=== PATIENT | male | born 1990 | race Caucasian/White ===

== ENCOUNTER 2022-12-28 15:18 | Inpatient (IN) | payer OTHER ==
[2022-12-28 15:48] VITALS: BMI 33.3
[2022-12-28] MEDS ORDERED: chlordiazePOXIDE HCL 25 MG CAPSULE PO PRN (16:30)
[2022-12-28] MEDS ORDERED: ONDANSETRON *ODT* 4 MG TABLET SL PRN (16:30)
[2022-12-28] MEDS ORDERED: P-EPHED 60MG/TRIPROLIDI 2.5MG TABLET PO PRN (16:30)
[2022-12-28] MEDS ORDERED: guaiFENesin 600 MG TABLET.ER (FP) PO PRN (16:30)
[2022-12-28] MEDS ORDERED: IBUPROFEN 600 MG TABLET (FP) PO PRN (16:30)
[2022-12-28] MEDS ORDERED: BISMUTH SUBSALICYLATE 524 MG/30 ML PO PRN (16:30)
[2022-12-28] MEDS ORDERED: POLYETHYLENE GLYCOL (HEALTHYLAX) 3350 17 GM PACKET PO PRN (16:30)
[2022-12-28] MEDS ORDERED: MAG HYDROX/AL HYDROX/SIMETH 30 ML UNIT-DOSE CUP PO PRN (16:30)
[2022-12-28] MEDS ORDERED: IBUPROFEN 400 MG TABLET (FP) PO PRN (16:30)
[2022-12-28] MEDS ORDERED: ACETAMINOPHEN 325 MG TABLET (FP) PO PRN (16:30)
[2022-12-28] MEDS ORDERED: BENZOCAINE/MENTHOL (CHLORASEPTIC ) LOZENGE MM PRN (16:30)
[2022-12-28] MEDS ORDERED: DICYCLOMINE HCL 10 MG CAPSULE PO PRN (16:30)
[2022-12-28] MEDS ORDERED: MAGNESIUM HYDROX 2400MG/30ML ORAL SUSPENSION 30 ML CUP PO PRN (16:30)
[2022-12-28] MEDS ORDERED: BENZONATATE 200 MG CAPSULE PO PRN (16:30)
[2022-12-28] MEDS ORDERED: LOPERAMIDE HCL 2 MG CAPSULE PO PRN (16:30)
[2022-12-28] MEDS ORDERED: METOPROLOL TARTRATE 25 MG TABLET (FP) ONE (16:45)
[2022-12-28] MEDS ORDERED: chlordiazePOXIDE HCL 25 MG CAPSULE ONE (16:45)
[2022-12-28] MEDS ORDERED: METOPROLOL TARTRATE 25 MG TABLET (FP) PO ONE (16:45)
[2022-12-28] MEDS: chlordiazePOXIDE HCL 25 MG CAPSULE PO SCH ×2 (17:23→22:01)
[2022-12-28] MEDS: THIAMINE HCL 100 MG TABLET (FP) PO SCH (22:01)
[2022-12-28] MEDS: MELATONIN 5 MG TABLETS PO SCH (22:02)
[2022-12-29] MEDS: chlordiazePOXIDE HCL 25 MG CAPSULE PO SCH ×4 (05:18→22:16)
[2022-12-29] MEDS: hydrOXYzine PAMOATE 25 MG CAPSULE (FP) PO PRN ×2 (05:19→16:49)
[2022-12-29] MEDS ORDERED: cloNIDine HCL 0.1 MG TABLET PO ONE (09:13)
[2022-12-29] MEDS: PRENATAL VITAMINS W/ FOLIC ACID TABLET (FP) PO SCH (10:14)
[2022-12-29 11:34] LABS: HEMATOCRIT 46.2 % (35.4-49); HEMOGLOBIN 16.4 GM/dL (11.7-16.9); MCH 34.1 pg (25.7-33.7); MCHC 35.6 g/dl (32.0-35.9); MEAN CELL VOLUME 95.9 fl (80-96); MEAN PLT VOLUME 10.4 fl (7.5-11.1); PLATELET COUNT 139 10^3/uL (134-434); RBC 4.82 M/mm3 (4.00-5.60); RDW 14.1 % (11.9-15.9); WHITE BLOOD COUNT 6.1 K/mm3 (4.0-10.0)
[2022-12-29 11:50] LABS: ALBUMIN 4.2 g/dl (3.4-5.0); BLOOD UREA NITROGEN 7.7 mg/dL (7-18)
[2022-12-29 11:51] LABS: CALCIUM 9.8 mg/dL (8.5-10.1)
[2022-12-29 11:52] LABS: BILIRUBIN,TOTAL 0.8 mg/dL (0.2-1)
[2022-12-29] MEDS: cloNIDine HCL 0.1 MG TABLET PO PRN ×2 (17:05→21:30)
[2022-12-29] MEDS: MELATONIN 5 MG TABLETS PO SCH (22:17)
[2022-12-29] MEDS: THIAMINE HCL 100 MG TABLET (FP) PO SCH (22:17)
[2022-12-30] MEDS: chlordiazePOXIDE HCL 25 MG CAPSULE PO SCH ×4 (05:13→22:27)
[2022-12-30] MEDS: cloNIDine HCL 0.1 MG TABLET PO PRN ×3 (05:15→20:27)
[2022-12-30] MEDS: PRENATAL VITAMINS W/ FOLIC ACID TABLET (FP) PO SCH (10:28)
[2022-12-30] MEDS: hydrOXYzine PAMOATE 25 MG CAPSULE (FP) PO PRN (10:29)
[2022-12-30] MEDS: HYDROCHLOROTHIAZIDE 25 MG TABLET (FP) PO SCH (10:30)
[2022-12-30] MEDS: amLODIPine BESYLATE 10 MG TABLET (FP) PO SCH (10:30)
[2022-12-30] MEDS: THIAMINE HCL 100 MG TABLET (FP) PO SCH (22:28)
[2022-12-30] MEDS: MELATONIN 5 MG TABLETS PO SCH (22:28)
[2022-12-31] MEDS ORDERED: chlordiazePOXIDE HCL 10 MG CAPSULE PO PRN
[2022-12-31] MEDS: chlordiazePOXIDE HCL 10 MG CAPSULE PO SCH ×4 (05:49→22:09)
[2022-12-31] MEDS: cloNIDine HCL 0.1 MG TABLET PO PRN ×3 (05:52→22:11)
[2022-12-31] MEDS: PRENATAL VITAMINS W/ FOLIC ACID TABLET (FP) PO SCH (10:29)
[2022-12-31] MEDS: amLODIPine BESYLATE 10 MG TABLET (FP) PO SCH (10:29)
[2022-12-31] MEDS: HYDROCHLOROTHIAZIDE 25 MG TABLET (FP) PO SCH (10:29)
[2022-12-31] MEDS: hydrOXYzine PAMOATE 25 MG CAPSULE (FP) PO PRN (10:29)
[2022-12-31 10:40] LABS: SGPT/ALT 146 U/L (13-61)
[2022-12-31 11:05] LABS: SGOT/AST 120 U/L (15-37)
[2022-12-31] MEDS: THIAMINE HCL 100 MG TABLET (FP) PO SCH (22:09)
[2022-12-31] MEDS: MELATONIN 5 MG TABLETS PO SCH (22:09)
[2023-01-01] MEDS ORDERED: chlordiazePOXIDE HCL 10 MG CAPSULE PO SCH (05:00)
[2023-01-01] MEDS: HYDROCHLOROTHIAZIDE 25 MG TABLET (FP) PO SCH (10:33)
[2023-01-01] MEDS: amLODIPine BESYLATE 10 MG TABLET (FP) PO SCH (10:33)
[2023-01-01] MEDS: hydrOXYzine PAMOATE 25 MG CAPSULE (FP) PO PRN ×2 (10:33→17:35)
[2023-01-01] MEDS: PRENATAL VITAMINS W/ FOLIC ACID TABLET (FP) PO SCH (10:33)
[2023-01-01] MEDS ORDERED: LORazepam 0.5 MG TABLET PO ONE (18:00)
[2023-01-01] MEDS ORDERED: cloNIDine HCL 0.1 MG TABLET PO ONE (19:19)
[2023-01-01] MEDS: THIAMINE HCL 100 MG TABLET (FP) PO SCH (22:18)
[2023-01-01] MEDS: MELATONIN 5 MG TABLETS PO SCH (22:18)
[2023-01-02] MEDS ORDERED: chlordiazePOXIDE HCL 10 MG CAPSULE PO ONE (05:00)
[2023-01-02] MEDS ORDERED: LORazepam 0.5 MG TABLET PO ONE (06:00)
[2023-01-02 09:10] VITALS: BP 130/79; PULSE 101; RESP 19; TEMP 98.1
[2023-01-02] MEDS: HYDROCHLOROTHIAZIDE 25 MG TABLET (FP) PO SCH (09:31)
[2023-01-02] MEDS: amLODIPine BESYLATE 10 MG TABLET (FP) PO SCH (09:31)
[2023-01-02] MEDS: PRENATAL VITAMINS W/ FOLIC ACID TABLET (FP) PO SCH (09:32)
== END 2023-01-02 10:53 | disposition home or self-care (01) | DRG 775 ==
LOC: SUATTDRO 15:18 → YASAS 15:18 → Y6N 17:10
PROVIDERS: ADMIT Allergy & Immunology; ATTEND Surgery
PROC: HZ2ZZZZ Detoxification Services for Substance Abuse Treatment (ICD-10-PCS; principal; 2022-12-28)
DX: F10.230 Alcohol dependence with withdrawal, uncomplicated (principal); I10 Essential (primary) hypertension; R74.8 Abnormal levels of other serum enzymes; R94.31 Abnormal electrocardiogram [ECG] [EKG]; R00.0 Tachycardia, unspecified
CPT/HCPCS: 36415; 80053; 84450; 84460; 85027; 86780; 93005; 93010; C9803-CS; U0003; U0005

== ENCOUNTER 2023-01-28 22:54 | Inpatient (IN) | payer OTHER ==
[2023-01-29] MEDS ORDERED: DICYCLOMINE HCL 10 MG CAPSULE PO PRN (00:17)
[2023-01-29] MEDS ORDERED: NALOXONE HCL (KLOXXADO) 8 MG SPRAY NS PRN (00:17)
[2023-01-29] MEDS ORDERED: MAG HYDROX/AL HYDROX/SIMETH 30 ML UNIT-DOSE CUP PO PRN (00:17)
[2023-01-29] MEDS ORDERED: NICOTINE POLACRILEX 2 MG GUM BUC PRN (00:17)
[2023-01-29] MEDS ORDERED: IBUPROFEN 600 MG TABLET (FP) PO PRN (00:17)
[2023-01-29] MEDS ORDERED: BENZONATATE 200 MG CAPSULE PO PRN (00:17)
[2023-01-29] MEDS ORDERED: ONDANSETRON *ODT* 4 MG TABLET SL PRN (00:17)
[2023-01-29] MEDS ORDERED: ACETAMINOPHEN 325 MG TABLET (FP) PO PRN (00:17)
[2023-01-29] MEDS ORDERED: NALOXONE HCL 0.4 MG/ML VIAL IM PRN (00:17)
[2023-01-29] MEDS ORDERED: BENZOCAINE/MENTHOL (CHLORASEPTIC ) LOZENGE MM PRN (00:17)
[2023-01-29] MEDS ORDERED: guaiFENesin 600 MG TABLET.ER (FP) PO PRN (00:17)
[2023-01-29] MEDS ORDERED: IBUPROFEN 400 MG TABLET (FP) PO PRN (00:17)
[2023-01-29] MEDS ORDERED: BISMUTH SUBSALICYLATE 524 MG/30 ML PO PRN (00:17)
[2023-01-29] MEDS ORDERED: POLYETHYLENE GLYCOL (HEALTHYLAX) 3350 17 GM PACKET PO PRN (00:17)
[2023-01-29] MEDS ORDERED: LOPERAMIDE HCL 2 MG CAPSULE PO PRN (00:17)
[2023-01-29] MEDS ORDERED: MAGNESIUM HYDROX 2400MG/30ML ORAL SUSPENSION 30 ML CUP PO PRN (00:17)
[2023-01-29 01:23] VITALS: BMI 33.2
[2023-01-29] MEDS ORDERED: cloNIDine HCL 0.1 MG TABLET PO ONE (02:11)
[2023-01-29] MEDS ORDERED: cloNIDine HCL 0.1 MG TABLET ONE (02:13)
[2023-01-29] MEDS: PRENATAL VITAMINS W/ FOLIC ACID TABLET (FP) PO SCH (10:15)
[2023-01-29] MEDS: HYDROCHLOROTHIAZIDE 25 MG TABLET (FP) PO SCH (10:15)
[2023-01-29] MEDS: amLODIPine BESYLATE 10 MG TABLET (FP) PO SCH (10:15)
[2023-01-29] MEDS: hydrOXYzine PAMOATE 25 MG CAPSULE (FP) PO PRN ×2 (13:49→22:20)
[2023-01-29] MEDS: diazePAM 5 MG TABLET PO SCH ×2 (17:47→22:19)
[2023-01-29] MEDS ORDERED: MELATONIN 5 MG TABLETS PO SCH (22:00)
[2023-01-29] MEDS: THIAMINE HCL 100 MG TABLET (FP) PO SCH (22:18)
[2023-01-29] MEDS: MELATONIN 5 MG TABLETS PO SCH (22:19)
[2023-01-30] MEDS: diazePAM 5 MG TABLET PO SCH ×4 (05:26→22:25)
[2023-01-30 10:03] LABS: HEMATOCRIT 46.7 % (35.4-49); HEMOGLOBIN 16.8 GM/dL (11.7-16.9); MCH 33.6 pg (25.7-33.7); MCHC 35.9 g/dl (32.0-35.9); MEAN CELL VOLUME 93.7 fl (80-96); MEAN PLT VOLUME 10.1 fl (7.5-11.1); PLATELET COUNT 99 10^3/uL (134-434); RBC 4.99 M/mm3 (4.00-5.60); RDW 13.3 % (11.9-15.9); WHITE BLOOD COUNT 6.8 K/mm3 (4.0-10.0)
[2023-01-30 10:07] LABS: CALCIUM 9.8 mg/dL (8.5-10.1)
[2023-01-30 10:08] LABS: ALBUMIN 4.1 g/dl (3.4-5.0); BLOOD UREA NITROGEN 9.8 mg/dL (7-18)
[2023-01-30 10:12] LABS: TOT PROT 7.8 g/dl (6.4-8.2)
[2023-01-30 10:15] LABS: BILIRUBIN,TOTAL 1.5 mg/dL (0.2-1)
[2023-01-30] MEDS: amLODIPine BESYLATE 10 MG TABLET (FP) PO SCH (10:36)
[2023-01-30] MEDS: HYDROCHLOROTHIAZIDE 25 MG TABLET (FP) PO SCH (10:36)
[2023-01-30] MEDS: PRENATAL VITAMINS W/ FOLIC ACID TABLET (FP) PO SCH (10:36)
[2023-01-30] MEDS ORDERED: POTASSIUM CHLORIDE ORAL LIQUID 20 MEQ/15 ML PO ONE (11:47)
[2023-01-30] MEDS: hydrOXYzine PAMOATE 25 MG CAPSULE (FP) PO PRN (17:46)
[2023-01-30] MEDS ORDERED: METOPROLOL TARTRATE 50 MG TABLET (FP) PO ONE (22:05)
[2023-01-30 22:16] LABS: URINE APPEARANCE CLEAR; URINE BILIRUBIN NEGATIVE (NEGATIVE); URINE COLOR YELLOW; URINE GLUCOSE (UA) NEGATIVE (NEGATIVE); URINE KETONE NEGATIVE (NEGATIVE); URINE LEUK ESTERASE NEGATIVE (NEGATIVE); URINE NITRITE NEGATIVE (NEGATIVE); URINE PROTEIN NEGATIVE (NEGATIVE); URINE UROBILINOGEN 0.2 mg/dL (0.2-1.0)
[2023-01-30] MEDS: THIAMINE HCL 100 MG TABLET (FP) PO SCH (22:26)
[2023-01-30] MEDS: MELATONIN 5 MG TABLETS PO SCH (22:26)
[2023-01-31] MEDS: diazePAM 5 MG TABLET PO SCH ×3 (05:29→22:20)
[2023-01-31] MEDS: HYDROCHLOROTHIAZIDE 25 MG TABLET (FP) PO SCH (09:07)
[2023-01-31] MEDS: amLODIPine BESYLATE 10 MG TABLET (FP) PO SCH (09:07)
[2023-01-31] MEDS: METHOCARBAMOL 500 MG TABLET PO PRN ×2 (09:07→22:22)
[2023-01-31] MEDS: diazePAM 5 MG TABLET PO PRN ×2 (09:07→18:46)
[2023-01-31] MEDS: PRENATAL VITAMINS W/ FOLIC ACID TABLET (FP) PO SCH (09:07)
[2023-01-31] MEDS: THIAMINE HCL 100 MG TABLET (FP) PO SCH (22:19)
[2023-01-31] MEDS: MELATONIN 5 MG TABLETS PO SCH (22:19)
[2023-01-31] MEDS: hydrOXYzine PAMOATE 25 MG CAPSULE (FP) PO PRN (22:22)
[2023-02-01] MEDS: diazePAM 5 MG TABLET PO SCH ×2 (05:31→17:31)
[2023-02-01] MEDS: diazePAM 5 MG TABLET PO PRN (10:19)
[2023-02-01] MEDS: PRENATAL VITAMINS W/ FOLIC ACID TABLET (FP) PO SCH (10:19)
[2023-02-01] MEDS: amLODIPine BESYLATE 10 MG TABLET (FP) PO SCH (10:19)
[2023-02-01] MEDS: HYDROCHLOROTHIAZIDE 25 MG TABLET (FP) PO SCH (10:19)
[2023-02-01] MEDS: hydrOXYzine PAMOATE 25 MG CAPSULE (FP) PO PRN ×3 (10:20→22:27)
[2023-02-01] MEDS: METHOCARBAMOL 500 MG TABLET PO PRN ×2 (12:53→22:25)
[2023-02-01 13:39] VITALS: RESP 18
[2023-02-01] MEDS: MELATONIN 5 MG TABLETS PO SCH (22:25)
[2023-02-01] MEDS: THIAMINE HCL 100 MG TABLET (FP) PO SCH (22:26)
[2023-02-02] MEDS ORDERED: diazePAM 5 MG TABLET PO ONE (06:00)
[2023-02-02] MEDS: amLODIPine BESYLATE 10 MG TABLET (FP) PO SCH (09:30)
[2023-02-02] MEDS: hydrOXYzine PAMOATE 25 MG CAPSULE (FP) PO PRN (09:30)
[2023-02-02] MEDS: HYDROCHLOROTHIAZIDE 25 MG TABLET (FP) PO SCH (09:30)
[2023-02-02] MEDS: PRENATAL VITAMINS W/ FOLIC ACID TABLET (FP) PO SCH (09:32)
[2023-02-02 09:37] VITALS: BP 137/88; PULSE 125; TEMP 97.7
[2023-02-02] MEDS: METHOCARBAMOL 500 MG TABLET PO PRN (10:03)
== END 2023-02-02 13:35 | disposition home or self-care (01) | DRG 775 ==
LOC: YASAS 22:54 → Y6N 01-29 01:35
PROVIDERS: ADMIT Allergy & Immunology; ATTEND Allergy & Immunology
PROC: HZ2ZZZZ Detoxification Services for Substance Abuse Treatment (ICD-10-PCS; principal; 2023-01-29)
DX: F10.230 Alcohol dependence with withdrawal, uncomplicated (principal); F10.280 Alcohol dependence with alcohol-induced anxiety disorder; F10.282 Alcohol dependence with alcohol-induced sleep disorder; E87.6 Hypokalemia; I10 Essential (primary) hypertension; Z86.69 Personal history of other diseases of the nervous system and sense organs; Z86.61 Personal history of infections of the central nervous system; Z28.310 Unvaccinated for COVID-19; Z72.0 Tobacco use
CPT/HCPCS: 36415; 80053; 81003; 84132; 85027; 86780; 87811; C9803-CS; Q0162; U0003; U0005

== ENCOUNTER 2023-02-03 08:27 | Inpatient (IN) | payer OTHER ==
[2023-02-03 09:03] VITALS: BMI 36.0
[2023-02-03] MEDS ORDERED: BENZOCAINE/MENTHOL (CHLORASEPTIC ) LOZENGE MM PRN (09:06)
[2023-02-03] MEDS ORDERED: IBUPROFEN 400 MG TABLET (FP) PO PRN (09:06)
[2023-02-03] MEDS ORDERED: MAGNESIUM HYDROX 2400MG/30ML ORAL SUSPENSION 30 ML CUP PO PRN (09:06)
[2023-02-03] MEDS ORDERED: hydrOXYzine PAMOATE 25 MG CAPSULE (FP) PO PRN (09:06)
[2023-02-03] MEDS ORDERED: BENZONATATE 200 MG CAPSULE PO PRN (09:06)
[2023-02-03] MEDS ORDERED: LOPERAMIDE HCL 2 MG CAPSULE PO PRN (09:06)
[2023-02-03] MEDS ORDERED: IBUPROFEN 600 MG TABLET (FP) PO PRN (09:06)
[2023-02-03] MEDS ORDERED: P-EPHED 60MG/TRIPROLIDI 2.5MG TABLET PO PRN (09:06)
[2023-02-03] MEDS ORDERED: AMMONIUM LACTATE 12% LOTION 225 GM BOTTLE TP PRN (09:06)
[2023-02-03] MEDS ORDERED: ACETAMINOPHEN 325 MG TABLET (FP) PO PRN (09:06)
[2023-02-03] MEDS ORDERED: guaiFENesin 600 MG TABLET.ER (FP) PO PRN (09:06)
[2023-02-03] MEDS ORDERED: COLLOIDAL OATMEAL 1 BAR EACH TP PRN (09:06)
[2023-02-03] MEDS ORDERED: POLYETHYLENE GLYCOL (HEALTHYLAX) 3350 17 GM PACKET PO PRN (09:06)
[2023-02-03] MEDS ORDERED: MAG HYDROX/AL HYDROX/SIMETH 30 ML UNIT-DOSE CUP PO PRN (09:06)
[2023-02-03] MEDS ORDERED: amLODIPine BESYLATE 5 MG TABLET (FP) ONE (10:35)
[2023-02-03] MEDS: amLODIPine BESYLATE 10 MG TABLET (FP) PO SCH (10:39)
[2023-02-03] MEDS: HYDROCHLOROTHIAZIDE 25 MG TABLET (FP) PO SCH (12:36)
[2023-02-03] MEDS: PRENATAL VITAMINS W/ FOLIC ACID TABLET (FP) PO SCH (12:37)
[2023-02-03] MEDS: MELATONIN 5 MG TABLETS PO SCH (21:22)
[2023-02-03] MEDS: THIAMINE HCL 100 MG TABLET (FP) PO SCH (21:22)
[2023-02-03] MEDS ORDERED: MELATONIN 5 MG TABLETS PO SCH (22:00)
[2023-02-04] MEDS: amLODIPine BESYLATE 10 MG TABLET (FP) PO SCH (10:20)
[2023-02-04] MEDS: HYDROCHLOROTHIAZIDE 25 MG TABLET (FP) PO SCH (10:21)
[2023-02-04] MEDS: PRENATAL VITAMINS W/ FOLIC ACID TABLET (FP) PO SCH (10:21)
[2023-02-04] MEDS: MELATONIN 5 MG TABLETS PO SCH (21:29)
[2023-02-04] MEDS: THIAMINE HCL 100 MG TABLET (FP) PO SCH (21:29)
[2023-02-05] MEDS: HYDROCHLOROTHIAZIDE 25 MG TABLET (FP) PO SCH (10:01)
[2023-02-05] MEDS: PRENATAL VITAMINS W/ FOLIC ACID TABLET (FP) PO SCH (10:01)
[2023-02-05] MEDS: amLODIPine BESYLATE 10 MG TABLET (FP) PO SCH (10:01)
[2023-02-05] MEDS: THIAMINE HCL 100 MG TABLET (FP) PO SCH (21:17)
[2023-02-05] MEDS: MELATONIN 5 MG TABLETS PO SCH (21:17)
[2023-02-06] MEDS: HYDROCHLOROTHIAZIDE 25 MG TABLET (FP) PO SCH (09:55)
[2023-02-06] MEDS: PRENATAL VITAMINS W/ FOLIC ACID TABLET (FP) PO SCH (09:55)
[2023-02-06] MEDS: amLODIPine BESYLATE 10 MG TABLET (FP) PO SCH (09:55)
[2023-02-06 11:57] LABS: POTASSIUM 4.2 mmol/L (3.5-5.1)
[2023-02-06 12:05] LABS: ALBUMIN 3.7 g/dl (3.4-5.0); CALCIUM 9.3 mg/dL (8.5-10.1)
[2023-02-06 12:07] LABS: BLOOD UREA NITROGEN 11.6 mg/dL (7-18)
[2023-02-06 12:10] LABS: BILIRUBIN,TOTAL 0.7 mg/dL (0.2-1)
[2023-02-06 12:11] LABS: TOT PROT 6.9 g/dl (6.4-8.2)
[2023-02-06] MEDS: MELATONIN 5 MG TABLETS PO SCH (21:32)
[2023-02-06] MEDS: THIAMINE HCL 100 MG TABLET (FP) PO SCH (21:32)
[2023-02-07] MEDS: PRENATAL VITAMINS W/ FOLIC ACID TABLET (FP) PO SCH (10:05)
[2023-02-07] MEDS: amLODIPine BESYLATE 10 MG TABLET (FP) PO SCH (10:05)
[2023-02-07] MEDS: HYDROCHLOROTHIAZIDE 25 MG TABLET (FP) PO SCH (15:47)
[2023-02-07] MEDS: MELATONIN 5 MG TABLETS PO SCH (21:17)
[2023-02-07] MEDS: THIAMINE HCL 100 MG TABLET (FP) PO SCH (21:18)
[2023-02-08] MEDS: PRENATAL VITAMINS W/ FOLIC ACID TABLET (FP) PO SCH (10:14)
[2023-02-08] MEDS: amLODIPine BESYLATE 10 MG TABLET (FP) PO SCH (10:15)
[2023-02-08] MEDS: HYDROCHLOROTHIAZIDE 25 MG TABLET (FP) PO SCH (10:15)
[2023-02-08] MEDS: THIAMINE HCL 100 MG TABLET (FP) PO SCH (21:33)
[2023-02-08] MEDS: MELATONIN 5 MG TABLETS PO SCH (21:33)
[2023-02-09] MEDS: PRENATAL VITAMINS W/ FOLIC ACID TABLET (FP) PO SCH (10:06)
[2023-02-09] MEDS: HYDROCHLOROTHIAZIDE 25 MG TABLET (FP) PO SCH (10:06)
[2023-02-09] MEDS: amLODIPine BESYLATE 10 MG TABLET (FP) PO SCH (10:07)
[2023-02-09] MEDS: MELATONIN 5 MG TABLETS PO SCH (21:29)
[2023-02-09] MEDS: THIAMINE HCL 100 MG TABLET (FP) PO SCH (21:29)
[2023-02-10] MEDS: HYDROCHLOROTHIAZIDE 25 MG TABLET (FP) PO SCH (09:57)
[2023-02-10] MEDS: amLODIPine BESYLATE 10 MG TABLET (FP) PO SCH (09:57)
[2023-02-10] MEDS: PRENATAL VITAMINS W/ FOLIC ACID TABLET (FP) PO SCH (09:57)
[2023-02-10] MEDS: MELATONIN 5 MG TABLETS PO SCH (21:25)
[2023-02-10] MEDS: THIAMINE HCL 100 MG TABLET (FP) PO SCH (21:25)
[2023-02-11] MEDS: PRENATAL VITAMINS W/ FOLIC ACID TABLET (FP) PO SCH (09:54)
[2023-02-11] MEDS: HYDROCHLOROTHIAZIDE 25 MG TABLET (FP) PO SCH (09:55)
[2023-02-11] MEDS: amLODIPine BESYLATE 10 MG TABLET (FP) PO SCH (09:55)
[2023-02-11] MEDS: THIAMINE HCL 100 MG TABLET (FP) PO SCH (21:37)
[2023-02-11] MEDS: MELATONIN 5 MG TABLETS PO SCH (21:37)
[2023-02-12] MEDS: PRENATAL VITAMINS W/ FOLIC ACID TABLET (FP) PO SCH (09:57)
[2023-02-12] MEDS: HYDROCHLOROTHIAZIDE 25 MG TABLET (FP) PO SCH (09:57)
[2023-02-12] MEDS: amLODIPine BESYLATE 10 MG TABLET (FP) PO SCH (09:57)
[2023-02-12] MEDS: MELATONIN 5 MG TABLETS PO SCH (21:24)
[2023-02-12] MEDS: THIAMINE HCL 100 MG TABLET (FP) PO SCH (21:24)
[2023-02-13] MEDS: PRENATAL VITAMINS W/ FOLIC ACID TABLET (FP) PO SCH (09:47)
[2023-02-13] MEDS: HYDROCHLOROTHIAZIDE 25 MG TABLET (FP) PO SCH (09:47)
[2023-02-13] MEDS: amLODIPine BESYLATE 10 MG TABLET (FP) PO SCH (09:47)
[2023-02-13] MEDS: MELATONIN 5 MG TABLETS PO SCH (21:35)
[2023-02-13] MEDS: THIAMINE HCL 100 MG TABLET (FP) PO SCH (21:35)
[2023-02-14] MEDS: PRENATAL VITAMINS W/ FOLIC ACID TABLET (FP) PO SCH (10:11)
[2023-02-14] MEDS: amLODIPine BESYLATE 10 MG TABLET (FP) PO SCH (10:12)
[2023-02-14] MEDS: HYDROCHLOROTHIAZIDE 25 MG TABLET (FP) PO SCH (10:12)
[2023-02-14] MEDS: MELATONIN 5 MG TABLETS PO SCH (21:27)
[2023-02-14] MEDS: THIAMINE HCL 100 MG TABLET (FP) PO SCH (21:27)
[2023-02-15] MEDS: PRENATAL VITAMINS W/ FOLIC ACID TABLET (FP) PO SCH (09:55)
[2023-02-15] MEDS: amLODIPine BESYLATE 10 MG TABLET (FP) PO SCH (09:58)
[2023-02-15] MEDS: HYDROCHLOROTHIAZIDE 25 MG TABLET (FP) PO SCH (09:58)
[2023-02-15 11:10] LABS: HEMATOCRIT 45.6 % (35.4-49); MCH 33.2 pg (25.7-33.7); MEAN CELL VOLUME 94.9 fl (80-96); MEAN PLT VOLUME 10.1 fl (7.5-11.1); PLATELET COUNT 338 10^3/uL (134-434); RBC 4.81 M/mm3 (4.00-5.60); RDW 12.7 % (11.9-15.9); WHITE BLOOD COUNT 8.4 K/mm3 (4.0-10.0)
[2023-02-15 11:12] LABS: POTASSIUM 4.5 mmol/L (3.5-5.1)
[2023-02-15 11:15] LABS: ALBUMIN 4.2 g/dl (3.4-5.0); CALCIUM 10.4 mg/dL (8.5-10.1)
[2023-02-15 11:16] LABS: BLOOD UREA NITROGEN 9.9 mg/dL (7-18)
[2023-02-15 11:18] LABS: CREATININE 1.1 mg/dL (0.55-1.3)
[2023-02-15 11:20] LABS: BILIRUBIN,TOTAL 1.2 mg/dL (0.2-1)
[2023-02-15] MEDS: MELATONIN 5 MG TABLETS PO SCH (21:19)
[2023-02-15] MEDS: THIAMINE HCL 100 MG TABLET (FP) PO SCH (21:19)
[2023-02-16] MEDS: HYDROCHLOROTHIAZIDE 25 MG TABLET (FP) PO SCH (10:22)
[2023-02-16] MEDS: PRENATAL VITAMINS W/ FOLIC ACID TABLET (FP) PO SCH (10:22)
[2023-02-16] MEDS: amLODIPine BESYLATE 10 MG TABLET (FP) PO SCH (10:22)
[2023-02-16] MEDS: MELATONIN 5 MG TABLETS PO SCH (21:40)
[2023-02-16] MEDS: THIAMINE HCL 100 MG TABLET (FP) PO SCH (21:41)
[2023-02-17] MEDS: PRENATAL VITAMINS W/ FOLIC ACID TABLET (FP) PO SCH (10:09)
[2023-02-17] MEDS: amLODIPine BESYLATE 10 MG TABLET (FP) PO SCH (10:10)
[2023-02-17] MEDS: HYDROCHLOROTHIAZIDE 25 MG TABLET (FP) PO SCH (10:10)
[2023-02-17] MEDS: MELATONIN 5 MG TABLETS PO SCH (21:22)
[2023-02-17] MEDS: THIAMINE HCL 100 MG TABLET (FP) PO SCH (21:22)
[2023-02-18] MEDS: amLODIPine BESYLATE 10 MG TABLET (FP) PO SCH (10:11)
[2023-02-18] MEDS: PRENATAL VITAMINS W/ FOLIC ACID TABLET (FP) PO SCH (10:11)
[2023-02-18] MEDS: HYDROCHLOROTHIAZIDE 25 MG TABLET (FP) PO SCH (10:11)
[2023-02-18] MEDS: MELATONIN 5 MG TABLETS PO SCH (21:15)
[2023-02-18] MEDS: THIAMINE HCL 100 MG TABLET (FP) PO SCH (21:15)
[2023-02-19] MEDS: HYDROCHLOROTHIAZIDE 25 MG TABLET (FP) PO SCH (10:15)
[2023-02-19] MEDS: amLODIPine BESYLATE 10 MG TABLET (FP) PO SCH (10:15)
[2023-02-19] MEDS: PRENATAL VITAMINS W/ FOLIC ACID TABLET (FP) PO SCH (10:15)
[2023-02-19] MEDS: MELATONIN 5 MG TABLETS PO SCH (21:25)
[2023-02-19] MEDS: THIAMINE HCL 100 MG TABLET (FP) PO SCH (21:25)
[2023-02-20] MEDS: HYDROCHLOROTHIAZIDE 25 MG TABLET (FP) PO SCH (09:48)
[2023-02-20] MEDS: PRENATAL VITAMINS W/ FOLIC ACID TABLET (FP) PO SCH (09:48)
[2023-02-20] MEDS: amLODIPine BESYLATE 10 MG TABLET (FP) PO SCH (09:48)
[2023-02-20] MEDS: THIAMINE HCL 100 MG TABLET (FP) PO SCH (21:17)
[2023-02-20] MEDS: MELATONIN 5 MG TABLETS PO SCH (21:17)
[2023-02-21] MEDS: HYDROCHLOROTHIAZIDE 25 MG TABLET (FP) PO SCH (09:44)
[2023-02-21] MEDS: PRENATAL VITAMINS W/ FOLIC ACID TABLET (FP) PO SCH (09:44)
[2023-02-21] MEDS: amLODIPine BESYLATE 10 MG TABLET (FP) PO SCH (09:44)
[2023-02-21] MEDS: THIAMINE HCL 100 MG TABLET (FP) PO SCH (21:16)
[2023-02-21] MEDS: MELATONIN 5 MG TABLETS PO SCH (21:16)
[2023-02-22 06:31] VITALS: TEMP 96.9
[2023-02-22] MEDS: PRENATAL VITAMINS W/ FOLIC ACID TABLET (FP) PO SCH (09:43)
[2023-02-22] MEDS: HYDROCHLOROTHIAZIDE 25 MG TABLET (FP) PO SCH (09:44)
[2023-02-22] MEDS: amLODIPine BESYLATE 10 MG TABLET (FP) PO SCH (09:44)
[2023-02-22 12:32] LABS: INR 1.1 (0.83-1.09); PROTHROMBIN TIME (PATIENT) 12.7 SEC (9.7-13.0)
[2023-02-22 13:18] LABS: POTASSIUM 4.9 mmol/L (3.5-5.1)
[2023-02-22 13:36] LABS: BLOOD UREA NITROGEN 14.3 mg/dL (7-18)
[2023-02-22 13:37] LABS: ALBUMIN 4.4 g/dl (3.4-5.0); CALCIUM 10.3 mg/dL (8.5-10.1)
[2023-02-22 13:39] LABS: CREATININE 1.2 mg/dL (0.55-1.3)
[2023-02-22 13:40] LABS: BILIRUBIN,TOTAL 1.1 mg/dL (0.2-1)
[2023-02-22 13:42] LABS: TOT PROT 7.9 g/dl (6.4-8.2)
[2023-02-22] MEDS: THIAMINE HCL 100 MG TABLET (FP) PO SCH (21:22)
[2023-02-22] MEDS: MELATONIN 5 MG TABLETS PO SCH (21:22)
[2023-02-23 07:12] VITALS: BP 127/84; PULSE 65; RESP 18
== END 2023-02-23 08:20 | disposition home or self-care (01) | DRG 772 ==
LOC: YASAS 08:27 → Y5N 11:08
PROVIDERS: ADMIT Allergy & Immunology; ATTEND Psychiatry & Neurology Pain Medicine
PROC: HZ42ZZZ Group Counseling for Substance Abuse Treatment, Cognitive-Behavioral (ICD-10-PCS; principal; 2023-02-03)
DX: F10.20 Alcohol dependence, uncomplicated (principal); F17.210 Nicotine dependence, cigarettes, uncomplicated; F10.282 Alcohol dependence with alcohol-induced sleep disorder; F10.280 Alcohol dependence with alcohol-induced anxiety disorder; I10 Essential (primary) hypertension; D72.819 Decreased white blood cell count, unspecified; R74.8 Abnormal levels of other serum enzymes; Z86.69 Personal history of other diseases of the nervous system and sense organs
CPT/HCPCS: 36415; 80053; 85027; 85610; 93005; 93010

== ENCOUNTER 2023-05-20 16:19 | Inpatient (IN) | payer OTHER ==
[2023-05-20 16:52] VITALS: BMI 31.0
[2023-05-20] MEDS ORDERED: MAG HYDROX/AL HYDROX/SIMETH 30 ML UNIT-DOSE CUP PO PRN (17:10)
[2023-05-20] MEDS ORDERED: NALOXONE HCL 0.4 MG/ML VIAL IM PRN (17:10)
[2023-05-20] MEDS ORDERED: IBUPROFEN 600 MG TABLET (FP) PO PRN (17:10)
[2023-05-20] MEDS ORDERED: POLYETHYLENE GLYCOL (HEALTHYLAX) 3350 17 GM PACKET PO PRN (17:10)
[2023-05-20] MEDS ORDERED: DICYCLOMINE HCL 10 MG CAPSULE PO PRN (17:10)
[2023-05-20] MEDS ORDERED: guaiFENesin 600 MG TABLET.ER (FP) PO PRN (17:10)
[2023-05-20] MEDS ORDERED: IBUPROFEN 400 MG TABLET (FP) PO PRN (17:10)
[2023-05-20] MEDS ORDERED: LOPERAMIDE HCL 2 MG CAPSULE PO PRN (17:10)
[2023-05-20] MEDS ORDERED: ACETAMINOPHEN 325 MG TABLET (FP) PO PRN (17:10)
[2023-05-20] MEDS ORDERED: BENZONATATE 200 MG CAPSULE PO PRN (17:10)
[2023-05-20] MEDS ORDERED: BENZOCAINE/MENTHOL (CHLORASEPTIC ) LOZENGE MM PRN (17:10)
[2023-05-20] MEDS ORDERED: BISMUTH SUBSALICYLATE 524 MG/30 ML PO PRN (17:10)
[2023-05-20] MEDS ORDERED: MAGNESIUM HYDROX 2400MG/30ML ORAL SUSPENSION 30 ML CUP PO PRN (17:10)
[2023-05-20] MEDS ORDERED: ONDANSETRON *ODT* 4 MG TABLET SL PRN (17:10)
[2023-05-20] MEDS ORDERED: NALOXONE HCL (KLOXXADO) 8 MG SPRAY NS PRN (17:10)
[2023-05-20] MEDS ORDERED: cloNIDine HCL 0.1 MG TABLET PO ONE (17:12)
[2023-05-20] MEDS ORDERED: cloNIDine HCL 0.1 MG TABLET ONE (17:19)
[2023-05-20] MEDS: chlordiazePOXIDE HCL 25 MG CAPSULE PO PRN (18:15)
[2023-05-20] MEDS: chlordiazePOXIDE HCL 25 MG CAPSULE PO SCH (22:20)
[2023-05-20] MEDS: THIAMINE HCL 100 MG TABLET (FP) PO SCH (22:21)
[2023-05-20] MEDS: MELATONIN 5 MG TABLETS PO SCH (22:22)
[2023-05-21] MEDS: chlordiazePOXIDE HCL 25 MG CAPSULE PO SCH ×4 (05:38→22:30)
[2023-05-21] MEDS: hydrOXYzine PAMOATE 25 MG CAPSULE (FP) PO PRN (10:11)
[2023-05-21] MEDS: amLODIPine BESYLATE 10 MG TABLET (FP) PO SCH (10:12)
[2023-05-21] MEDS: HYDROCHLOROTHIAZIDE 25 MG TABLET (FP) PO SCH (10:12)
[2023-05-21] MEDS: PRENATAL VITAMINS W/ FOLIC ACID TABLET (FP) PO SCH (10:12)
[2023-05-21] MEDS: chlordiazePOXIDE HCL 25 MG CAPSULE PO PRN (14:07)
[2023-05-21] MEDS: cloNIDine HCL 0.1 MG TABLET PO PRN ×3 (14:07→22:30)
[2023-05-21 16:07] LABS: POTASSIUM 3.8 mmol/L (3.5-5.1)
[2023-05-21 16:09] LABS: HEMATOCRIT 48.9 % (35.4-49); HEMOGLOBIN 17.4 GM/dL (11.7-16.9); MCH 33.5 pg (25.7-33.7); MCHC 35.5 g/dl (32.0-35.9); MEAN CELL VOLUME 94.2 fl (80-96); MEAN PLT VOLUME 9.8 fl (7.5-11.1); PLATELET COUNT 146 10^3/uL (134-434); RBC 5.19 M/mm3 (4.00-5.60); RDW 14.4 % (11.9-15.9); WHITE BLOOD COUNT 7.3 K/mm3 (4.0-10.0)
[2023-05-21 16:12] LABS: CALCIUM 10.2 mg/dL (8.5-10.1)
[2023-05-21 16:13] LABS: ALBUMIN 4.8 g/dl (3.4-5.0); BLOOD UREA NITROGEN 10.6 mg/dL (7-18)
[2023-05-21 16:16] LABS: CREATININE 1.3 mg/dL (0.55-1.3)
[2023-05-21 16:17] LABS: TOT PROT 8.8 g/dl (6.4-8.2)
[2023-05-21] MEDS: THIAMINE HCL 100 MG TABLET (FP) PO SCH (22:30)
[2023-05-21] MEDS: MELATONIN 5 MG TABLETS PO SCH (22:30)
[2023-05-22] MEDS: chlordiazePOXIDE HCL 25 MG CAPSULE PO SCH ×4 (05:29→22:49)
[2023-05-22] MEDS: amLODIPine BESYLATE 10 MG TABLET (FP) PO SCH (10:11)
[2023-05-22] MEDS: HYDROCHLOROTHIAZIDE 25 MG TABLET (FP) PO SCH (10:11)
[2023-05-22] MEDS: cloNIDine HCL 0.1 MG TABLET PO PRN ×2 (10:11→17:30)
[2023-05-22] MEDS: PRENATAL VITAMINS W/ FOLIC ACID TABLET (FP) PO SCH (10:12)
[2023-05-22] MEDS: chlordiazePOXIDE HCL 25 MG CAPSULE PO PRN (17:28)
[2023-05-22] MEDS: MELATONIN 5 MG TABLETS PO SCH (22:46)
[2023-05-22] MEDS: hydrOXYzine PAMOATE 25 MG CAPSULE (FP) PO PRN (22:47)
[2023-05-22] MEDS: METHOCARBAMOL 500 MG TABLET PO PRN (22:47)
[2023-05-22] MEDS: THIAMINE HCL 100 MG TABLET (FP) PO SCH (22:47)
[2023-05-23] MEDS ORDERED: chlordiazePOXIDE HCL 10 MG CAPSULE PO PRN
[2023-05-23] MEDS: chlordiazePOXIDE HCL 10 MG CAPSULE PO SCH ×4 (05:53→22:24)
[2023-05-23] MEDS: amLODIPine BESYLATE 10 MG TABLET (FP) PO SCH (10:07)
[2023-05-23] MEDS: PRENATAL VITAMINS W/ FOLIC ACID TABLET (FP) PO SCH (10:07)
[2023-05-23] MEDS: HYDROCHLOROTHIAZIDE 25 MG TABLET (FP) PO SCH (10:07)
[2023-05-23] MEDS: hydrOXYzine PAMOATE 25 MG CAPSULE (FP) PO PRN ×2 (20:07→22:22)
[2023-05-23] MEDS ORDERED: METOPROLOL TARTRATE 25 MG TABLET (FP) PO ONE (22:09)
[2023-05-23] MEDS: MELATONIN 5 MG TABLETS PO SCH (22:22)
[2023-05-23] MEDS: THIAMINE HCL 100 MG TABLET (FP) PO SCH (22:22)
[2023-05-23] MEDS: METHOCARBAMOL 500 MG TABLET PO PRN (22:22)
[2023-05-24] MEDS: chlordiazePOXIDE HCL 10 MG CAPSULE PO SCH ×2 (05:16→17:39)
[2023-05-24] MEDS: amLODIPine BESYLATE 10 MG TABLET (FP) PO SCH (09:47)
[2023-05-24] MEDS: HYDROCHLOROTHIAZIDE 25 MG TABLET (FP) PO SCH (09:47)
[2023-05-24] MEDS: PRENATAL VITAMINS W/ FOLIC ACID TABLET (FP) PO SCH (09:48)
[2023-05-24] MEDS ORDERED: METOPROLOL TARTRATE 25 MG TABLET (FP) PO ONE (17:20)
[2023-05-24] MEDS: THIAMINE HCL 100 MG TABLET (FP) PO SCH (22:31)
[2023-05-24] MEDS: MELATONIN 5 MG TABLETS PO SCH (22:31)
[2023-05-24] MEDS: METHOCARBAMOL 500 MG TABLET PO PRN (22:31)
[2023-05-24] MEDS: hydrOXYzine PAMOATE 25 MG CAPSULE (FP) PO PRN (22:31)
[2023-05-25] MEDS ORDERED: chlordiazePOXIDE HCL 10 MG CAPSULE PO ONE (05:00)
[2023-05-25 09:09] VITALS: BP 136/93; PULSE 99; RESP 18; TEMP 97.9
[2023-05-25] MEDS: amLODIPine BESYLATE 10 MG TABLET (FP) PO SCH (09:47)
[2023-05-25] MEDS: PRENATAL VITAMINS W/ FOLIC ACID TABLET (FP) PO SCH (09:48)
[2023-05-25] MEDS ORDERED: HYDROCHLOROTHIAZIDE 25 MG TABLET (FP) PO SCH (10:00)
== END 2023-05-25 10:26 | disposition home or self-care (01) | DRG 775 ==
LOC: YASAS 16:19 → Y3N 17:31
PROVIDERS: ADMIT Allergy & Immunology; ATTEND Allergy & Immunology
PROC: HZ2ZZZZ Detoxification Services for Substance Abuse Treatment (ICD-10-PCS; principal; 2023-05-20)
DX: F10.230 Alcohol dependence with withdrawal, uncomplicated (principal); I10 Essential (primary) hypertension; Z87.891 Personal history of nicotine dependence
CPT/HCPCS: 36415; 80053; 85027; 86780; 87635; Q0162

== ENCOUNTER 2023-10-19 22:11 | Inpatient (IN) | payer OTHER ==
[2023-10-19 22:52] VITALS: BMI 34.0
[2023-10-19] MEDS ORDERED: BISMUTH SUBSALICYLATE 524 MG/30 ML PO PRN (23:28)
[2023-10-19] MEDS ORDERED: POLYETHYLENE GLYCOL (HEALTHYLAX) 3350 17 GM PACKET PO PRN (23:28)
[2023-10-19] MEDS ORDERED: BENZONATATE 200 MG CAPSULE PO PRN (23:28)
[2023-10-19] MEDS ORDERED: DICYCLOMINE HCL 10 MG CAPSULE PO PRN (23:28)
[2023-10-19] MEDS ORDERED: NALOXONE HCL 0.4 MG/ML VIAL IM PRN (23:28)
[2023-10-19] MEDS ORDERED: BENZOCAINE/MENTHOL (CHLORASEPTIC ) LOZENGE MM PRN (23:28)
[2023-10-19] MEDS ORDERED: IBUPROFEN 400 MG TABLET (FP) PO PRN (23:28)
[2023-10-19] MEDS ORDERED: ONDANSETRON *ODT* 4 MG TABLET SL PRN (23:28)
[2023-10-19] MEDS ORDERED: guaiFENesin 600 MG TABLET.ER (FP) PO PRN (23:28)
[2023-10-19] MEDS ORDERED: IBUPROFEN 600 MG TABLET (FP) PO PRN (23:28)
[2023-10-19] MEDS ORDERED: MAGNESIUM HYDROX 2400MG/30ML ORAL SUSPENSION 30 ML CUP PO PRN (23:28)
[2023-10-19] MEDS ORDERED: NALOXONE HCL (KLOXXADO) 8 MG SPRAY NS PRN (23:28)
[2023-10-19] MEDS ORDERED: ACETAMINOPHEN 325 MG TABLET (FP) PO PRN (23:28)
[2023-10-19] MEDS ORDERED: LOPERAMIDE HCL 2 MG CAPSULE PO PRN (23:28)
[2023-10-19] MEDS ORDERED: MAG HYDROX/AL HYDROX/SIMETH 30 ML UNIT-DOSE CUP PO PRN (23:28)
[2023-10-20] MEDS: hydrOXYzine PAMOATE 25 MG CAPSULE (FP) PO PRN (04:09)
[2023-10-20] MEDS ORDERED: chlordiazePOXIDE HCL 25 MG CAPSULE PO PRN (09:20)
[2023-10-20] MEDS: HYDROCHLOROTHIAZIDE 25 MG TABLET (FP) PO SCH (10:46)
[2023-10-20] MEDS: PRENATAL VITAMINS W/ FOLIC ACID TABLET (FP) PO SCH (10:46)
[2023-10-20] MEDS: amLODIPine BESYLATE 10 MG TABLET (FP) PO SCH (10:46)
[2023-10-20] MEDS: chlordiazePOXIDE HCL 25 MG CAPSULE PO SCH ×3 (10:48→22:12)
[2023-10-20 10:55] LABS: HEMATOCRIT 44.3 % (35.4-49); HEMOGLOBIN 14.8 GM/dL (11.7-16.9); MCH 30.7 pg (25.7-33.7); MCHC 33.3 g/dl (32.0-35.9); MEAN CELL VOLUME 92.2 fl (80-96); MEAN PLT VOLUME 10.1 fl (7.5-11.1); PLATELET COUNT 229 10^3/uL (134-434); RBC 4.81 M/mm3 (4.00-5.60); RDW 13.5 % (11.9-15.9); WHITE BLOOD COUNT 6.8 K/mm3 (4.0-10.0)
[2023-10-20 11:22] LABS: ALBUMIN 3.9 g/dl (3.4-5.0); BLOOD UREA NITROGEN 15.8 mg/dL (7-18); CALCIUM 9.7 mg/dL (8.5-10.1)
[2023-10-20 11:26] LABS: TOT PROT 7.1 g/dl (6.4-8.2)
[2023-10-20 11:27] LABS: BILIRUBIN,TOTAL 0.3 mg/dL (0.2-1)
[2023-10-20] MEDS: MELATONIN 5 MG TABLETS PO SCH (22:12)
[2023-10-20] MEDS: THIAMINE HCL 100 MG TABLET (FP) PO SCH (22:12)
[2023-10-21] MEDS: chlordiazePOXIDE HCL 25 MG CAPSULE PO SCH ×4 (05:21→22:13)
[2023-10-21] MEDS: PRENATAL VITAMINS W/ FOLIC ACID TABLET (FP) PO SCH (10:06)
[2023-10-21] MEDS: HYDROCHLOROTHIAZIDE 25 MG TABLET (FP) PO SCH (10:07)
[2023-10-21] MEDS: amLODIPine BESYLATE 10 MG TABLET (FP) PO SCH (10:07)
[2023-10-21] MEDS: MELATONIN 5 MG TABLETS PO SCH (22:13)
[2023-10-21] MEDS: METHOCARBAMOL 500 MG TABLET PO PRN (22:13)
[2023-10-21] MEDS: THIAMINE HCL 100 MG TABLET (FP) PO SCH (22:13)
[2023-10-22] MEDS: chlordiazePOXIDE HCL 25 MG CAPSULE PO SCH ×4 (05:22→22:27)
[2023-10-22] MEDS: amLODIPine BESYLATE 10 MG TABLET (FP) PO SCH (10:07)
[2023-10-22] MEDS: HYDROCHLOROTHIAZIDE 25 MG TABLET (FP) PO SCH (10:07)
[2023-10-22] MEDS: PRENATAL VITAMINS W/ FOLIC ACID TABLET (FP) PO SCH (10:07)
[2023-10-22] MEDS: METHOCARBAMOL 500 MG TABLET PO PRN (22:25)
[2023-10-22] MEDS: hydrOXYzine PAMOATE 25 MG CAPSULE (FP) PO PRN (22:25)
[2023-10-22] MEDS: MELATONIN 5 MG TABLETS PO SCH (22:25)
[2023-10-22] MEDS: THIAMINE HCL 100 MG TABLET (FP) PO SCH (22:26)
[2023-10-23] MEDS ORDERED: chlordiazePOXIDE HCL 10 MG CAPSULE PO PRN
[2023-10-23] MEDS: chlordiazePOXIDE HCL 10 MG CAPSULE PO SCH ×4 (05:17→22:27)
[2023-10-23] MEDS: HYDROCHLOROTHIAZIDE 25 MG TABLET (FP) PO SCH (10:12)
[2023-10-23] MEDS: PRENATAL VITAMINS W/ FOLIC ACID TABLET (FP) PO SCH (10:12)
[2023-10-23] MEDS: amLODIPine BESYLATE 10 MG TABLET (FP) PO SCH (10:12)
[2023-10-23] MEDS ORDERED: METOPROLOL TARTRATE 25 MG TABLET (FP) PO ONE (18:05)
[2023-10-23] MEDS: MELATONIN 5 MG TABLETS PO SCH (22:24)
[2023-10-23] MEDS: hydrOXYzine PAMOATE 25 MG CAPSULE (FP) PO PRN (22:25)
[2023-10-23] MEDS: METHOCARBAMOL 500 MG TABLET PO PRN (22:25)
[2023-10-23] MEDS: THIAMINE HCL 100 MG TABLET (FP) PO SCH (22:25)
[2023-10-24] MEDS: chlordiazePOXIDE HCL 10 MG CAPSULE PO SCH ×2 (05:42→17:29)
[2023-10-24] MEDS: METHOCARBAMOL 500 MG TABLET PO PRN ×2 (05:43→22:13)
[2023-10-24] MEDS ORDERED: valACYclovir HCL 500 MG TABLET (FP) PO ONE (08:43)
[2023-10-24] MEDS: HYDROCHLOROTHIAZIDE 25 MG TABLET (FP) PO SCH (09:28)
[2023-10-24] MEDS: amLODIPine BESYLATE 10 MG TABLET (FP) PO SCH (09:30)
[2023-10-24] MEDS: PRENATAL VITAMINS W/ FOLIC ACID TABLET (FP) PO SCH (09:30)
[2023-10-24] MEDS: VITAMINS A AND D TOPICAL OINTMENT 60 GM TUBE TP SCH ×2 (12:02→17:31)
[2023-10-24] MEDS: hydrOXYzine PAMOATE 25 MG CAPSULE (FP) PO PRN (22:13)
[2023-10-24] MEDS: MELATONIN 5 MG TABLETS PO SCH (22:13)
[2023-10-24] MEDS: THIAMINE HCL 100 MG TABLET (FP) PO SCH (22:13)
[2023-10-25] MEDS: VITAMINS A AND D TOPICAL OINTMENT 60 GM TUBE TP SCH ×2 (01:07→05:46)
[2023-10-25] MEDS ORDERED: chlordiazePOXIDE HCL 10 MG CAPSULE PO ONE (05:00)
[2023-10-25 09:04] VITALS: BP 129/90; PULSE 97; RESP 19; TEMP 97.7
[2023-10-25] MEDS: HYDROCHLOROTHIAZIDE 25 MG TABLET (FP) PO SCH (09:34)
[2023-10-25] MEDS: PRENATAL VITAMINS W/ FOLIC ACID TABLET (FP) PO SCH (09:34)
[2023-10-25] MEDS: amLODIPine BESYLATE 10 MG TABLET (FP) PO SCH (09:34)
== END 2023-10-25 09:45 | disposition home or self-care (01) | DRG 775 ==
LOC: YASAS 22:11 → Y3N 10-20 03:47
PROVIDERS: ADMIT Allergy & Immunology; ATTEND Allergy & Immunology
PROC: HZ2ZZZZ Detoxification Services for Substance Abuse Treatment (ICD-10-PCS; principal; 2023-10-20)
DX: F10.230 Alcohol dependence with withdrawal, uncomplicated (principal); I10 Essential (primary) hypertension; B00.9 Herpesviral infection, unspecified; Z86.61 Personal history of infections of the central nervous system; Z56.0 Unemployment, unspecified; Z59.00 Homelessness unspecified
CPT/HCPCS: 36415; 80053; 80307; 85027; 86780; 87635; 93005; 93010

== ENCOUNTER 2024-01-04 20:03 | Inpatient (IN) | payer OTHER ==
[2024-01-04 21:46] VITALS: BMI 32.6
[2024-01-04] MEDS ORDERED: guaiFENesin 600 MG TABLET.ER (FP) PO PRN (22:12)
[2024-01-04] MEDS ORDERED: MAGNESIUM HYDROX 2400MG/30ML ORAL SUSPENSION 30 ML CUP PO PRN (22:12)
[2024-01-04] MEDS ORDERED: chlordiazePOXIDE HCL 25 MG CAPSULE PO PRN (22:12)
[2024-01-04] MEDS ORDERED: MAG HYDROX/AL HYDROX/SIMETH 30 ML UNIT-DOSE CUP PO PRN (22:12)
[2024-01-04] MEDS ORDERED: BENZONATATE 200 MG CAPSULE PO PRN (22:12)
[2024-01-04] MEDS ORDERED: ACETAMINOPHEN 325 MG TABLET (FP) PO PRN (22:12)
[2024-01-04] MEDS ORDERED: BISMUTH SUBSALICYLATE 524 MG/30 ML PO PRN (22:12)
[2024-01-04] MEDS ORDERED: IBUPROFEN 600 MG TABLET (FP) PO PRN (22:12)
[2024-01-04] MEDS ORDERED: BENZOCAINE/MENTHOL (CHLORASEPTIC ) LOZENGE MM PRN (22:12)
[2024-01-04] MEDS ORDERED: POLYETHYLENE GLYCOL (HEALTHYLAX) 3350 17 GM PACKET PO PRN (22:12)
[2024-01-04] MEDS ORDERED: LOPERAMIDE HCL 2 MG CAPSULE PO PRN (22:12)
[2024-01-04] MEDS ORDERED: ONDANSETRON *ODT* 4 MG TABLET SL PRN (22:12)
[2024-01-04] MEDS ORDERED: IBUPROFEN 400 MG TABLET (FP) PO PRN (22:12)
[2024-01-04] MEDS ORDERED: DICYCLOMINE HCL 10 MG CAPSULE PO PRN (22:12)
[2024-01-04] MEDS ORDERED: METOPROLOL TARTRATE 25 MG TABLET (FP) ONE (22:54)
[2024-01-04] MEDS ORDERED: chlordiazePOXIDE HCL 25 MG CAPSULE ONE (22:54)
[2024-01-04] MEDS: METOPROLOL TARTRATE 25 MG TABLET (FP) PO ONE (22:58)
[2024-01-04] MEDS: chlordiazePOXIDE HCL 25 MG CAPSULE PO SCH (22:59)
[2024-01-05] MEDS: PRENATAL VITAMINS W/ FOLIC ACID TABLET (FP) PO SCH (10:32)
[2024-01-05] MEDS: amLODIPine BESYLATE 10 MG TABLET (FP) PO SCH (10:32)
[2024-01-05] MEDS: HYDROCHLOROTHIAZIDE 25 MG TABLET (FP) PO SCH (10:32)
[2024-01-05 12:16] LABS: MCH 31.5 pg (25.7-33.7); MCHC 33.3 g/dl (32.0-35.9); MEAN CELL VOLUME 94.5 fl (80-96); MEAN PLT VOLUME 10.1 fl (7.5-11.1); PLATELET COUNT 155 10^3/uL (134-434); RBC 4.76 M/mm3 (4.00-5.60); RDW 15.3 % (11.9-15.9); WHITE BLOOD COUNT 6.2 K/mm3 (4.0-10.0)
[2024-01-05 12:44] LABS: POTASSIUM 3.3 mmol/L (3.5-5.1)
[2024-01-05 12:46] LABS: ALBUMIN 3.8 g/dl (3.4-5.0)
[2024-01-05 12:51] LABS: BILIRUBIN,TOTAL 0.6 mg/dL (0.2-1); TOT PROT 6.9 g/dl (6.4-8.2)
[2024-01-05] MEDS: MELATONIN 5 MG TABLETS PO SCH (22:06)
[2024-01-05] MEDS: METHOCARBAMOL 500 MG TABLET PO PRN (22:06)
[2024-01-05] MEDS: THIAMINE HCL 100 MG TABLET (FP) PO SCH (22:06)
[2024-01-06] MEDS: chlordiazePOXIDE HCL 25 MG CAPSULE PO SCH (05:37)
[2024-01-06] MEDS: POTASSIUM CHLORIDE ORAL LIQUID 20 MEQ/15 ML PO ONE ×2 (11:19→12:06)
[2024-01-07] MEDS ORDERED: chlordiazePOXIDE HCL 10 MG CAPSULE PO PRN
[2024-01-07] MEDS: hydrOXYzine PAMOATE 25 MG CAPSULE (FP) PO PRN (01:46)
[2024-01-07] MEDS: chlordiazePOXIDE HCL 10 MG CAPSULE PO SCH (05:22)
[2024-01-07 10:39] LABS: POTASSIUM 3.6 mmol/L (3.5-5.1)
[2024-01-07 10:45] LABS: CALCIUM 9.5 mg/dL (8.5-10.1)
[2024-01-07 10:46] LABS: BLOOD UREA NITROGEN 9.3 mg/dL (7-18)
[2024-01-07 10:49] LABS: CREATININE 1.1 mg/dL (0.55-1.3)
[2024-01-08] MEDS: chlordiazePOXIDE HCL 10 MG CAPSULE PO SCH (05:23)
[2024-01-09] MEDS: chlordiazePOXIDE HCL 10 MG CAPSULE PO ONE (05:48)
[2024-01-09 05:59] VITALS: BP 104/61; PULSE 72; RESP 16; TEMP 97.6
== END 2024-01-09 09:17 | disposition other institution (70) | DRG 775 ==
LOC: YASAS 20:03 → Y3N 22:28
PROVIDERS: ADMIT Allergy & Immunology; ATTEND Surgery
PROC: HZ2ZZZZ Detoxification Services for Substance Abuse Treatment (ICD-10-PCS; principal; 2024-01-04)
DX: F10.230 Alcohol dependence with withdrawal, uncomplicated (principal); E87.6 Hypokalemia; I10 Essential (primary) hypertension; Z59.01 Sheltered homelessness
CPT/HCPCS: 36415; 80048; 80053; 80305; 85027; 86780

== ENCOUNTER 2025-05-12 21:25 | Inpatient (IN) | payer OTHER ==
[2025-05-12 21:48] VITALS: BMI 30.7
[2025-05-12] MEDS ORDERED: MAGNESIUM HYDROX 2400MG/30ML ORAL SUSPENSION 30 ML CUP PO PRN (22:09)
[2025-05-12] MEDS ORDERED: ACETAMINOPHEN 325 MG TABLET (FP) PO PRN (22:09)
[2025-05-12] MEDS ORDERED: NALOXONE (NARCAN) HCL 4 MG/0.1 ML SPRAY NS PRN (22:09)
[2025-05-12] MEDS ORDERED: NICOTINE POLACRILEX 4 MG GUM BUC PRN (22:09)
[2025-05-12] MEDS ORDERED: DICYCLOMINE HCL 10 MG CAPSULE PO PRN (22:09)
[2025-05-12] MEDS ORDERED: MAG HYDROX/AL HYDROX/SIMETH 30 ML UNIT-DOSE CUP PO PRN (22:09)
[2025-05-12] MEDS ORDERED: POLYETHYLENE GLYCOL (HEALTHYLAX) 3350 17 GM PACKET PO PRN (22:09)
[2025-05-12] MEDS ORDERED: BENZONATATE 200 MG CAPSULE PO PRN (22:09)
[2025-05-12] MEDS ORDERED: guaiFENesin 600 MG TABLET.ER (FP) PO PRN (22:09)
[2025-05-12] MEDS ORDERED: IBUPROFEN 400 MG TABLET (FP) PO PRN (22:09)
[2025-05-12] MEDS ORDERED: LOPERAMIDE HCL 2 MG CAPSULE PO PRN (22:09)
[2025-05-12] MEDS ORDERED: BENZOCAINE/MENTHOL (CHLORASEPTIC ) LOZENGE MM PRN (22:09)
[2025-05-12] MEDS ORDERED: BISMUTH SUBSALICYLATE 524 MG/30 ML PO PRN (22:09)
[2025-05-13] MEDS: amLODIPine BESYLATE 10 MG TABLET (FP) PO SCH (10:34)
[2025-05-13] MEDS: HYDROCHLOROTHIAZIDE 25 MG TABLET (FP) PO SCH (10:34)
[2025-05-13] MEDS: ONDANSETRON *ODT* 4 MG TABLET SL PRN (10:34)
[2025-05-13] MEDS: PRENATAL VITAMINS W/ FOLIC ACID TABLET (FP) PO SCH (10:35)
[2025-05-13] MEDS: IBUPROFEN 600 MG TABLET (FP) PO PRN (10:35)
[2025-05-13 11:44] LABS: MCHC 32.9 g/dl (32.3-36.5); MEAN CELL VOLUME 95.9 fl (79.0-92.2); MEAN PLT VOLUME 11.3 fl (9.4-12.4); RDW 13.8 % (12.0-15.6)
[2025-05-13 13:02] LABS: GLUCOSE,RANDOM 81.0 mg/dL (74-106); TOT PROT 6.5 g/dl (6.4-8.2)
[2025-05-13 13:03] LABS: CO2 23.0 mmol/L (21-32)
[2025-05-13 13:04] LABS: ALK PHOS 73.0 U/L (40-150)
[2025-05-13 13:07] LABS: SGOT/AST 27.0 U/L (5-34); SGPT/ALT 27.0 U/L (0-55)
[2025-05-13 13:08] LABS: CREATININE 0.92 mg/dL (0.55-1.3)
[2025-05-13] MEDS: hydrOXYzine PAMOATE 25 MG CAPSULE (FP) PO PRN (17:11)
[2025-05-13] MEDS: MELATONIN 5 MG TABLETS PO SCH (22:19)
[2025-05-13] MEDS: METHOCARBAMOL 500 MG TABLET PO PRN (22:19)
[2025-05-13] MEDS: THIAMINE 100 MG TABLET PO SCH (22:19)
[2025-05-16] MEDS: traZODone HCL 50 MG TABLET (FP) PO SCH (22:24)
[2025-05-18 10:10] VITALS: BP 143/87; PULSE 89; RESP 16; TEMP 96.9
== END 2025-05-18 10:49 | disposition home or self-care (01) | DRG 775 ==
LOC: YASAS 21:25 → Y3N 23:45
PROVIDERS: ADMIT Neuromusculoskeletal Medicine & OMM; ATTEND Allergy & Immunology
PROC: HZ2ZZZZ Detoxification Services for Substance Abuse Treatment (ICD-10-PCS; principal; 2025-05-12)
DX: F10.230 Alcohol dependence with withdrawal, uncomplicated (principal); F17.210 Nicotine dependence, cigarettes, uncomplicated; F19.24 Other psychoactive substance dependence with psychoactive substance-induced mood disorder; F32.A Depression, unspecified; I10 Essential (primary) hypertension; Z59.01 Sheltered homelessness
CPT/HCPCS: 36415; 80053; 80307; 85027; 86780; 93005; 93010; Q0162